=== PATIENT | male | born 1985 | race Caucasian/White ===

== ENCOUNTER 2023-03-26 18:52 | Emergency (ER) | payer MEDICAID ==
[~2023-03-26] VITALS: Ht 154.9 cm; Wt 70.1 kg
[2023-03-26 20:01] LABS: BASOPHILS % 0.4 % (0.0-2.0); EOSINOPHILS % 2.3 % (0.0-5.0); HEMATOCRIT. 43.9 % (42.0-52.0); HEMOGLOBIN. 15.2 g/dL (14.0-18.0); LYMPHOCYTES % 40.9 % (20.0-50.0); MEAN CORPUSCULAR HEMOGLOBIN 29.5 pg (28.0-32.0); MEAN CORPUSCULAR HGB CONC 34.6 g/dL (31.0-37.0); MEAN CORPUSCULAR VOLUME 85.3 fL (80.0-94.0); MEAN PLATELET VOLUME 9.6 fl (7.4-10.4); MONOCYTES % 6.5 % (2.0-8.0); NEUTROPHILS % 49.9 % (40.0-76.0); PLATELET 234 x1000/uL (130-400); RED BLOOD CELL COUNT 5.14 mill/uL (4.7-6.1); RED CELL DISTRIBUTION WIDTH 13.6 % (11.6-14.6); WHITE BLOOD COUNT 8.3 x1000/uL (4.5-11.0)
[2023-03-26 20:10] LABS: CHLORIDE 110 mEq/L (98-107); INDEX HEMOLYSI 1 (1-3); INDEX ICTERIC 1 (1-4); INDEX LIPEMIC 1 (1-3); POTASSIUM 3.9 mEq/L (3.5-5.1); SODIUM 141 mEq/L (136-145)
[2023-03-26 20:19] LABS: ALANINE AMINOTRANSFERASE 34 IU/L (13-61); ALBUMIN 4.4 g/dL (3.4-5.0); ASPARTATE AMINOTRANSFERASE 17 IU/L (15-37); BILIRUBIN TOTAL 0.5 mg/dL (0.1-1.0); CARBON DIOXIDE 28 mEq/L (21-32); CREATININE 0.9 mg/dL (0.6-1.3); GLUCOSE 127 mg/dL (70-105); PROTEIN TOTAL 8.3 g/dL (6.0-8.3); TROPONIN I HIGH SENSITIVITY 4 ng/L (<78); UREA NITROGEN BLOOD 12 mg/dL (7-21)
[2023-03-27 01:06] VITALS: TEMP 98.5; O2SAT 100
[2023-03-27] MEDS ORDERED: MAG-55 MT (01:07)
[2023-03-27] MEDS ORDERED: FAMO40TA70 MT (01:07)
[2023-03-27 01:39] VITALS: BP 140/71; PULSE 87; RESP 18
== END 2023-03-27 01:39 | disposition home or self-care (01) ==
LOC: ER 18:52
DX: R42 Dizziness and giddiness (principal)
CPT/HCPCS: 36415; 71045; 80053; 84484; 85025; 93005; 99285